=== PATIENT | male | born 1980 | race Caucasian/White ===

== ENCOUNTER 2017-02-17 10:13 | Outpatient (CLI) | payer OTHER | END 2017-02-17 10:14 | disposition home or self-care (01) | DX: G47.30 Sleep apnea, unspecified (principal); G47.8 Other sleep disorders; G47.10 Hypersomnia, unspecified; G47.00 Insomnia, unspecified ==

== ENCOUNTER 2017-03-08 19:38 | Outpatient (CLI) | payer OTHER | END 2017-03-08 19:39 | disposition home or self-care (01) | DX: G47.33 Obstructive sleep apnea (adult) (pediatric) (principal) ==

== ENCOUNTER 2017-04-07 09:38 | Outpatient (CLI) | payer OTHER | END 2017-04-07 09:39 | disposition home or self-care (01) | LOC: SC 09:38 | PROVIDERS: ATTEND Specialist | DX: G47.33 Obstructive sleep apnea (adult) (pediatric) (principal) | CPT/HCPCS: 99212; 99213 ==

== ENCOUNTER 2017-05-26 13:50 | Outpatient (CLI) | payer OTHER | END 2017-05-26 13:51 | disposition home or self-care (01) | LOC: SC 13:50 | PROVIDERS: ATTEND Specialist | DX: G47.33 Obstructive sleep apnea (adult) (pediatric) (principal); F43.10 Post-traumatic stress disorder, unspecified; G47.00 Insomnia, unspecified | CPT/HCPCS: 99212; 99213 ==

== ENCOUNTER 2018-07-19 15:45 | Outpatient (CLI) | payer OTHER | END 2018-07-19 15:46 | disposition home or self-care (01) | LOC: SC 15:45 | PROVIDERS: ATTEND Nurse Practitioner Family | DX: G47.33 Obstructive sleep apnea (adult) (pediatric) (principal) | CPT/HCPCS: 99212; 99214 ==

== ENCOUNTER 2018-08-24 10:51 | Outpatient (CLI) | payer OTHER | END 2018-08-24 10:52 | disposition home or self-care (01) | LOC: SC 10:51 | PROVIDERS: ATTEND Nurse Practitioner Family | DX: G47.33 Obstructive sleep apnea (adult) (pediatric) (principal) | CPT/HCPCS: 99212; 99214 ==

== ENCOUNTER 2018-10-07 09:40 | Outpatient (CLI) | payer OTHER | END 2018-10-07 09:41 | disposition home or self-care (01) | LOC: SC 09:40 | PROVIDERS: ATTEND Nurse Practitioner Family | DX: G47.33 Obstructive sleep apnea (adult) (pediatric) (principal) | CPT/HCPCS: 99212; 99214 ==

== ENCOUNTER 2020-01-09 13:10 | Outpatient (CLI) | payer OTHER ==
[2020-01-09 14:10] VITALS: BP 120/78
--- NOTE | 2020-01-09 14:10 | SLEEP CARE CONSULTATION ---
Information from patient questionnaire entered by Nohemi Chilel. I have reviewed and concur with the information entered by Nohemi Chilel. This document represents the service I personally performed and the decisions made by me, Alize Bob, RN, MSN, PAPER INSPECTOR. History of Present Illness Previous diagnosis: Severe, Obstructive Sleep Apnea-Hypopnea Syndrome AHI: 49.4 Reason for follow up: annual (last seen 2018) Accompanied by: Spouse Equipment type: CPAP Equipment obtained from: [facility] (having difficulty getting supplies despite repeated attempts) Mask style: Nasal (Dreamwear nasal mask.) Mask brand: Respironics Backup mask available: No (keep current mask as spare ) Last cushion change: 1 month ago CPAP Compliance Data - Data Reviewed with Patient Average duration of nightly device use: 7.4 Compliance rate %: 93.3 (180 days) Current pressure setting (cmH2O): 10-15 Humidity settin Heated hose settin Average residual AHI: 2.1 Average large leak: 3 sec Subjective Patient concerns: reports: air blowing in eyes (occasionally ), mask leak noise (per spouse ), condensation in mask/hose, other (mask dislodging 5 times or more a night). denies: aerophagia, mask discomfort, nasal congestion, dry mouth, nose, throat, epistaxis Observed to snore while using device: No Current pressure setting perceived as: comfortable On therapy, patient: reports: sleeping better, awakening more refreshed, being more awake and alert during the day, more rested overall. denies: drowsiness while driving Initial [place] Sleepiness Scale score: 14 Current [place] Sleepiness Scale score: 8 Allergies and Home Medications Known drug allergies: Yes (pencillin) Home medication list reviewed: Yes (gabapentin stopped ) Allergy and home medication list: Medication Name (generic/name brand) Strength & Dosage Bupropion 300mg cap one twice daily Duloxetine 30mg 2 tabs HS Cetirizine 10mg tab one daily Propranolol 40mg tab one twice daily Acetaminophen 500mg tab prn Review of Systems Review of systems same as previous: Yes Physical Exam Blood Pressure: 120/78 Cuff size: long Heart Rate: 62 O2 Saturation: 98 Height: 5 ft 11 in Weight: 233 lb 9.6 oz Body Mass Index: 32.5 BMI Classification: Obesity Class 1 Impression and Plan 1. Obstructive Sleep Apnea-Hypopnea Syndrome, severe, with good treatment compliance and good apnea control. On CPAP therapy, the patient has better sleep quality and is more rested overall. For patient supply concerns. Patient w as notified that another DME can be used. He has been getting supplies online. I will have my automotive parts coordinator inform of DME options. A DWO prescription will then be made. Patient advised to contact this office if further supply problems. At that time I will order a headgear with arms. Condensation in mask despited only water in reservoir. The hose is off so shown how to turn on wtih sampel devcie. Printed instructions given. Patient wants to lose weight weight. Currently patients BMI is 32.5 obesity class . He and spouse just joined [employer]. Obesity increases the risk of apnea, CPAP pressure requirements and overall health risks especially cardiovascular and diabetes. Thus patient is advised to lose weight. Weight loss can be done with reducing portion size, refined foods and balancing content with vegetables, fruit and protein. A diet consultation can be helpful in achieving optimal weight loss goals. The BMI chart was reviewed. The patient would like to reduce to 20 pounds bringing their BMI down to 29. Patient encouraged to discuss their weight loss goals with their PCP and consider a referral to a wood treating inspector. The patient's CPAP pressure was changed to autoCPAP at 8-12 cmH2O to accommodate for future weight loss. Symptoms to report for additional pressure adjustment discussed. Patient's apnea severity and rationale for treatment to reduce apnea, improve sleep quality and reduce cardiovascular and cerebrovascular events was reviewed. I also reviewed the benefit of consistent device use of CPAP for his hypertension, PTSD, migraines. * * Change CPAP pressure to 8-12 cmH2O * Transfer DME * Start the heated hose * Add new headgear to reduce mask dislodging. * Notify me if snoring with mask or feeling that the pressure is too much or too little * Attempt to lose weight * Call this office if any problems using CPAP * Return for follow up in 1 year , or sooner if concerns arise Time Spent with Patient (minutes): 32 I spent 100% of this visit face to face with the patient with greater than 50% of this was spent time counseling the patient and coordination of care.
== END 2020-01-09 13:11 | disposition home or self-care (01) ==
LOC: SC 13:10
PROVIDERS: ATTEND Nurse Practitioner Family
DX: G47.33 Obstructive sleep apnea (adult) (pediatric) (principal); E66.9 Obesity, unspecified; Z68.32 Body mass index [BMI] 32.0-32.9, adult
CPT/HCPCS: 99212; 99214

== ENCOUNTER 2020-04-17 10:28 | Emergency (ER) | payer OTHER ==
--- NOTE | 2020-04-17 11:03 | XRAY Report ---
Reason: FALL YESTERDAY Procedure Date: 04/17/2020 Accession Number: [id number] / [id number] Procedure: XR - Hand 3 View RT CPT Code: Final Report FULL RESULT: EXAM: RIGHT HAND RADIOGRAPHY EXAM DATE: 04/17/2020 10:52 AM. CLINICAL HISTORY: Status post fall yesterday, hand injury. COMPARISON: None. TECHNIQUE: 3 views. FINDINGS: Bones: Normal. No fractures or bone lesions. Joints: Normal. No subluxations. Soft Tissues: Normal. No soft tissue swelling. IMPRESSION: Normal hand radiography. No fracture or dislocation evident. [facility]
--- NOTE | 2020-04-17 11:07 | XRAY Report ---
Reason: FALL YESTERDAY Procedure Date: 04/17/2020 Accession Number: [id number] / [id number] Procedure: XR - Wrist 3 View RT CPT Code: Final Report FULL RESULT: EXAM: RIGHT WRIST RADIOGRAPHY EXAM DATE: 04/17/2020 10:52 AM. CLINICAL HISTORY: Right wrist injury status post fall yesterday. COMPARISON: HAND 2 VIEW RT 04/17/2020 10:27 AM. TECHNIQUE: 3 views. FINDINGS: Bones: Normal. No fractures or bone lesions. Joints: Normal. No subluxations. Soft Tissues: Normal. No soft tissue swelling. IMPRESSION: Normal wrist radiography. [facility]
--- NOTE | 2020-04-17 11:33 | ED Physician Documentation ---
PD HPI UPPER EXT INJURY - Stated complaint Stated Complaint: R WRIST/THUMB INJ - Chief complaint Chief Complaint: Ext Problem - History obtained from History obtained from: Patient - History of Present Illness Location: Right, Wrist, Finger Type of injury: Twist (he was crouched under a deck and fell forward, catching himself with fingers, and had twist of the thumb.) Where injury occurred: Work Timing - onset: Yesterday Timing - details: Abrupt onset, Still present Worsened by: Moving, Palpating Associated symptoms: Swelling, Discolored (some bruising today). No: Weakness, Numbness Similar symptoms before: Has not had sx before Review of Systems Constitutional: denies: Fever, Chills Nose: denies: Rhinorrhea / runny nose, Congestion Respiratory: denies: Dyspnea, Cough Skin: denies: Abrasion (s), Laceration (s) Neurologic: denies: Generalized weakness, Focal weakness, Numbness PD PAST MEDICAL HISTORY - Past Medical History Past Medical History: No Cardiovascular: None Respiratory: None Neuro: None Endocrine/Autoimmune: None : None HEENT: None Psych: None Musculoskeletal: None Derm: None - Allergies Allergies/Adverse Reactions: Allergies Allergy/AdvReac Type Severity Reaction Status Date / Time Penicillins Allergy Anaphylaxis Verified 04/17/20 10:34 - Social History Does the pt smoke?: No Smoking Status: Never smoker PD ED PE NORMAL - Vitals Vital signs reviewed: Yes - General General: Alert and oriented X 3, No acute distress, Well developed/nourished - Derm Derm: Normal color, Warm and dry - Extremities Extremities: Other (not tender at UCL area and not laxity at thumb base. Injury at IP. No gross laxity on collateral stress. Swelling, tender and some bruising at IP ulnar side and volar. ) - Neuro Neuro: Alert and oriented X 3, No motor deficit (limited motion due to swelling but can initiate and resist flex/ext against resistance. ), No sensory deficit Results - Vitals Vitals: Vital Signs - 24 hr 04/17/20 04/17/20 04/17/20 10:31 12:36 12:43 Temperature 36.8 C 36.9 C 36.8 C Heart Rate 55 L 56 L 58 L Respiratory 16 12 14 Rate Blood Pressure 141/92 H 137/95 H 130/90 H O2 Saturation 99 99 100 Oxygen O2 Source Room air - Rads (name of study) right thumb Radiology: Prelim report reviewed (no fracture), See rad report PD MEDICAL DECISION MAKING - ED course Complexity details: considered differential (not tender at UCL area and not laxity at thumb base. Injury at IP. No gross laxity on collateral stress. ), d/w patient Departure - Departure Disposition: 01 Home, Self Care Clinical Impression: Thumb sprain Qualifiers: Encounter type: initial encounter Sprain of finger site: interphalangeal joint Laterality: right Qualified Code(s): S63.621A - Sprain of interphalangeal joint of right thumb, initial encounter Condition: Stable Record reviewed to determine appropriate education?: Yes Instructions: ED Sprain Finger Follow-Up: BETSY CRONIN [Primary Care Provider] - Felice Stout MD [Provider Admit Priv/Credential] - Comments: Naproxen or ibuprofen 2-3 times a day with food for the next week. Ice elevate and rest the thumb often today and tomorrow to reduce swelling. Use a thumb splint and wrist splint combination regularly for the next several days to a week. He can have it off when rested. I would anticipate improvement well over the next several days to a week. You may still want to continue some thumb support for even 2 to 3 weeks until fully healed. Recheck if not improving well in that timeframe. Discharge Date/Time: 04/17/20 12:43
[2020-04-17] MEDS ORDERED: IBUPROFEN 600 MG TABLET PO STA (12:12)
[2020-04-17 12:45] VITALS: BP 130/90
== END 2020-04-17 12:43 | disposition home or self-care (01) ==
LOC: ED 10:28
DX: S63.621A Sprain of interphalangeal joint of right thumb, initial encounter (principal); X50.1XXA Overexertion from prolonged static or awkward postures, initial encounter; Y93.89 Activity, other specified; Y92.008 Other place in unspecified non-institutional (private) residence as the place of occurrence of the external cause
CPT/HCPCS: 73110; 73130; 99283; A9270

== ENCOUNTER 2021-10-30 03:08 | Emergency (ER) | payer OTHER ==
--- NOTE | 2021-10-30 04:10 | ED Physician Documentation ---
History of Present Illness - Stated complaint Stated Complaint: L FT PX - Chief complaint Chief Complaint: Ext Problem - History obtained from History obtained from: Patient - History of Present Illness Timing: How many weeks ago (1) Pain level now: 3 Improved by: rest Worsened by: palpation, movement such as dorsiflexion and plantarflexion - Additonal information Additional information: c/o atraumatic pain to dorsum of left foot x 1 week. he was evaluated at [facility] , had plain film xrays which he says were interpreted as normal. he was given a walking boot. He presents at this time due to ongoing pain to dorsum of the foot that is episodic, seems more intense at night and was at its most severe tonight. Denies h/o similar symptoms. denies swelling , redness, fever, injury. He has been taking ibuprofen and tylenol with some degree of symptom relief Review of Systems Constitutional: denies: Fever Cardiac: denies: Chest pain / pressure, Pedal edema, Calf pain Respiratory: denies: Dyspnea Skin: denies: Rash Musculoskeletal: reports: Extremity pain. denies: Extremity swelling PD PAST MEDICAL HISTORY - Past Medical History Past Medical History: Yes Cardiovascular: Hypertension Respiratory: None Neuro: None Endocrine/Autoimmune: None GI: None : None HEENT: None Psych: Post traumatic stress disorder Musculoskeletal: None Derm: None - Past Surgical History Past Surgical History: Yes Ortho: Other - Present Medications Home Medications: Ambulatory Orders Medication Instructions Recorded Confirmed Bupropion HCl [Wellbutrin Xl] 300 mg PO DAILY 10/30/21 10/30/21 Cetirizine HCl [Zyrtec] 10 mg PO DAILY 10/30/21 10/30/21 HYDROcod/ACETAM 5/325 [[place] 5/325] 1 - 2 tablet PO Q6H PRN #14 tablet 10/30/21 Prazosin [Minipress] 1 mg PO DAILY 10/30/21 10/30/21 Propranolol [Inderal] 40 mg PO DAILY 10/30/21 10/30/21 - Allergies Allergies/Adverse Reactions: Allergies Allergy/AdvReac Type Severity Reaction Status Date / Time Penicillins Allergy Anaphylaxis Verified 10/30/21 03:21 - Social History Does the pt smoke?: No Smoking Status: Never smoker Does the pt drink ETOH?: No Does the pt have substance abuse?: No - Immunizations Immunizations are current?: Yes - POLST Patient has POLST: No PD ED PE NORMAL - Vitals Vital signs reviewed: Yes - General General: Alert and oriented X 3, No acute distress, Well developed/nourished - Derm Derm: Normal color, Warm and dry, No rash - Extremities Extremities: No deformity, No tenderness to palpate, No edema, Other (pain is partially reproduced with dorsi/plantarflexion) Results - Vitals Vitals: Oxygen O2 Source Room air PD MEDICAL DECISION MAKING - ED course Complexity details: considered differential, d/w patient ED course: atraumatic left foot pain that is limited to the dorsal aspect of the midfoot. There is no erythema, swelling, crepitus. There is no significant tenderness to palpation. Strong DP and PT pulse on right with no abnormal heat to touch. At this time emergent testing is not indicated. doubt gout (no erythema, no significant tenderness, no abnormal heat to touch), doubt cellulitis or other infectious process (for similar lack of findings as gout), doubt DVT (no swelling and symptoms limited to dorsum of midfoot). bony injury, bone spur, significant arthritis would presumably have been noted on plain film xrays performed earlier in the week. tendinitis, tendinopathy are possible causes which would require further investigation in outpatient setting. Encouraged to follow up with his primary care provider for reevaluation. I am prescribing a short course of short-acting opioid pain medication for this patient. I have reviewed the patients CUPOLA CHARGER and no concerning findings were noted. I have discussed that the opioids are for short term therapy only, and will not be refilled from the ED. Departure - Departure Disposition: 01 Home, Self Care Clinical Impression: Foot pain, left Condition: Good Instructions: ED Symptoms No Dx Follow-Up: ARACELY EWING DO [Primary Care Provider] - Prescriptions: HYDROcod/ACETAM 5/325 [[place] 5/325] 1 - 2 tablet PO Q6H PRN #14 tablet PRN Reason: Pain Comments: A prescription for narcotic pain medication (hydrocodone with acetaminophen) has been electronically submitted to the [facility] pharmacy in [place]. I am prescribing a short course of narcotic pain medication for you. These are potentially dangerous and addictive medications that should be used carefully. These medications may constipate you. Take an hruc-xcc-wvkybni stool softener (docusate) twice daily with plenty of water while taking these medications. If you go 24 hours without a bowel movement, take [id number]-[id number] miralax, per package instructions. Do not drink or drive while taking these medications. If you received narcotic or sedating medications while in the emergency department, do not drive for 24 hours. Store this medication in a safe, secure place and out of reach of children. It is a violation of federal law to give or sell this medication to another person or to use in a manner other than prescribed. The ED will not refill narcotic prescriptions, including prescriptions lost or stolen. To dispose of unwanted medications: 1. [facility] [address] in [place] has a medication drop box. They accept prescription medications (in pill form) Thursday through Thursday 9:00 a.m. to 5:00 p.m. 2. The [facility] [employer] accepts prescription medications (in pill form only) for disposal year round. Call for more information. 3. Contact the [facility] for the next [facility] sponsored prescription drug collection event. , [phone], or [phone]; Discharge Date/Time: 10/30/21 05:25
[2021-10-30] MEDS ORDERED: HYDROcod/ACET 5/325 Prepack 4 PO STA (05:06)
[2021-10-30 05:27] VITALS: BP 149/89
== END 2021-10-30 05:25 | disposition home or self-care (01) ==
LOC: ED 03:08
DX: M79.672 Pain in left foot (principal); I10 Essential (primary) hypertension
CPT/HCPCS: 99282; 99283

== ENCOUNTER 2023-10-29 19:26 | Emergency (ER) | payer OTHER ==
[2023-10-29] MEDS ORDERED: CYCLOBENZAPRINE 10 MG TABLET PO STA (19:51)
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
[2023-10-29 19:57] VITALS: O2SAT 98
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
[2023-10-29 21:28] VITALS: BP 175/100
== END 2023-10-29 21:30 | disposition home or self-care (01) ==
LOC: ED 19:26
DX: S16.1XXA Strain of muscle, fascia and tendon at neck level, initial encounter (principal); V43.52XA Car driver injured in collision with other type car in traffic accident, initial encounter; Y93.89 Activity, other specified; Y92.410 Unspecified street and highway as the place of occurrence of the external cause
CPT/HCPCS: 72125; 99283; A9270